=== PATIENT | female | born 1990 | race African-American/Black ===

== ENCOUNTER 2017-05-28 17:44 | Emergency (ER) | payer OTHER ==
[~2017-05-28] VITALS: Ht 149.9 cm; Wt 82.2 kg
[2017-05-28 17:55] VITALS: Ht 149.9 cm; Wt 82.2 kg
[2017-05-28] MEDS ORDERED: SULF1TAB31 PO (21:31)
[2017-05-28] MEDS ORDERED: CLOB60CR2 TOP (21:31)
[2017-05-28] MEDS ORDERED: CEPH-443 PO (21:31)
--- NOTE | 2017-05-28 21:43 | ERD ---
ER Documentation Chief Complaint Chief Complaint redness to nose since yesterday HPI 27-year-old female presents here to emergency department for complaints of redness in the tip of the nose that started yesterday, patient has history of rosacea, easily takes clobetasol cream for it. Patient is complaining of some pain, sharp pain 4/10 scale, as was upon touching the area, noted some purulent discharge coming out of it. Patient is any fever or chills. Patient denies any rash in other parts of the body. ROS All systems reviewed and are negative except as per history of present illness. Medications Home Meds Active Scripts Cephalexin* (Keflex*) 500 Mg Capsule, 500 MG PO QID for 10 Days, CAP Prov:MIKEL VILLAFUERTE NP 05/28/17 Sulfamethoxazole/Trimethoprim* (Bactrim Ds* Tablet) 1 Each Tablet, 1 TAB PO BID , #20 TAB Prov:MIKEL VILLAFUERTE NP 05/28/17 Clobetasol Propionate* (Clobetasol Propionate*) 60 Gm Cream.gm., 1 APPLIC TOP BID, #1 TUB Prov:MIKEL VILLAFUERTE NP 05/28/17 Allergies Allergies: Coded Allergies: Opioids - Morphine Analogues (Verified Allergy, Unknown, 05/28/17) PMhx/Soc Medical and Surgical Hx: pt denies Medical Hx, pt denies Surgical Hx Hx Alcohol Use: No Hx Substance Use: No Hx Tobacco Use: No Smoking Status: Never smoker FmHx Family History: No coronary disease, No diabetes, No other Physical Exam Vitals Vital Signs Date Time Temp Pulse Resp B/P Pulse Ox O2 Delivery O2 Flow Rate FiO2 05/28/17 21:45 98.5 103 16 139/82 98 Room Air 05/28/17 17:55 99.6 122 18 133/80 97 Physical Exam GENERAL: The patient is well developed and appropriate for usual state of health, in no apparent distress. HEENT: Atraumatic. Ears: Normal tympanic membrane, no erythema or bulging. No ear canal swelling. No ear discharge. Nose: normal nasal turbinates, no erythema or swelling. Normal nasal discharge. Throat: oropharynx clear. No tonsillar swelling or tonsillar exudates. No lymphadenopathy. Erythema in the tip of the nasal area, with tenderness on palpation, mild induration noted. CHEST: Clear to auscultation bilaterally. There are no rales, wheezes or rhonchi. HEART: Regular rate and rhythm. No murmurs, clicks, rubs or gallops. No S3 or S4. ABDOMEN: Soft, nontender and nondistended. Good bowel sounds. No rebound or guarding. No gross peritonitis. No gross organomegaly or masses. No Corley sign or McBurney point tenderness. BACK: No midline or flank tenderness. EXTREMITIES: Equal pulses bilaterally. There is no peripheral clubbing, cyanosis or edema. No focal swelling or erythema. Full range of motion. Grossly neurovascularly intact. NEURO: Alert and oriented. Cranial nerves 2-12 intact. Motor strength in all 4 extremities with 5/5 strength. Sensation grossly intact. Normal speech and gait. SKIN: There is no apparent rash or petechia. The skin is warm and dry. HEMATOLOGIC AND LYMPHATIC: There is no evidence of excessive bruising or lymphedema. No gross cervical, axillary, or inguinal lymphadenopathy. Procedures/MDM Medical Decision making: Patient symptoms was likely is consistent with rosacea , no symptoms of any sepsis at this time, patient appears well and is hemodynamically stable. No symptoms of any abscess. Prescription written for Keflex, Bactrim, clobetasol cream, is advised to see relationship specialist for further evaluation and management. Patient was advised to return to emergency department for any worsening symptoms. Disposition: Home. Stable. Departure Diagnosis: Primary Impression: Rosacea Condition: Stable Patient Instructions: MIKEL Finley NP May 28, 2017 21:43
[2017-05-28 21:45] VITALS: BP 139/82; PULSE 103; RESP 16; TEMP 98.5
== END 2017-05-28 22:12 | disposition home or self-care (01) ==
LOC: FTE 17:44
DX: L71.9 Rosacea, unspecified (principal)
CPT/HCPCS: 99284

== ENCOUNTER 2018-09-02 01:59 | Emergency (ER) | payer OTHER ==
[~2018-09-02] VITALS: Ht 149.9 cm; Wt 84.2 kg
[~2018-09-02 01:59] MED LIST: CEPH-443 PO; CLOB60CR2 TOP; SULF1TAB31 PO
[2018-09-02 02:11] VITALS: Ht 149.9 cm; Wt 84.2 kg
[2018-09-02] MEDS ORDERED: ALBUTEROL 0.083% (NEB) 2.5 MG/3 ML AMP HHN STA (04:31)
[2018-09-02] MEDS ORDERED: IPRATROPIUM (NEB) 0.5 MG/2.5 ML AMP HHN ONE (05:00)
[2018-09-02] MEDS ORDERED: predniSONE 20 MG TAB PO ONE (05:00)
[2018-09-02] MEDS ORDERED: BENZ-6 PO (05:25)
[2018-09-02] MEDS ORDERED: CETI10CA PO (05:25)
[2018-09-02] MEDS ORDERED: MONT10TA21 PO (05:25)
[2018-09-02] MEDS ORDERED: RANI150T35 PO (05:25)
[2018-09-02] MEDS ORDERED: FLUT9.9S NASAL (05:25)
[2018-09-02] MEDS ORDERED: ALBU18HF INHALATION (05:25)
[2018-09-02] MEDS ORDERED: BUDE6HFA INHALATION (05:25)
[2018-09-02] MEDS ORDERED: TIOT18CA INHALATION (05:25)
[2018-09-02] MEDS ORDERED: PRED20TA PO (05:26)
--- NOTE | 2018-09-02 05:28 | ERD ---
ER Documentation Chief Complaint Chief Complaint SOB,cough,congestion x 1-4 days hx asthma on inhaler HPI 28-year-old female presents with cough congestion and wheezing. She has a history of severe allergies. She is originally from [place] and has been okay for the last several months but was exposed to some dust recently which caused her allergies to get worse. She is requesting refills on her Singulair, Symbicort, Spiriva, plus additional medications. He has any fevers, recent significant URI. ROS All systems reviewed and are negative except as per history of present illness. Medications Home Meds Active Scripts Prednisone* (Prednisone*) 20 Mg Tab, 40 MG PO DAILY for 4 Days, TAB Prov:ALEX WINTERS MD 09/02/18 Cetirizine Hcl* (Zyrtec*) 10 Mg Capsule, 10 MG PO DAILY, #30 TAB.CHEW Prov:ALEX WINTERS MD 09/02/18 Budesonide-Formoterol Fumarate* (Symbicort*) 160-4.5 Hfa.aer.ad, 2 PUFF INHALATION BID, #1 EACH Prov:ALEX WINTERS MD 09/02/18 Montelukast Sodium* (Singulair*) 10 Mg Tablet, 10 MG PO QHS, #30 TAB Prov:ALEX WINTERS MD 09/02/18 Fluticasone Propionate (Flonase Allergy Relief) 9.9 Ml Isabella.susp, 1 SPRAY NASAL DAILY, #1 BOTTLE TO EACH NOSTRIL Prov:ALEX WINTERS MD 09/02/18 Albuterol Sulfate* (Ventolin HFA*) 18 Gm Hfa.aer.ad, 2 PUFF INHALATION Q4H, #1 INHALER Prov:ALEX WINTERS MD 09/02/18 Tiotropium [place]* (Spiriva*) 18 Mcg Cap.w.dev, 1 CAP INHALATION DAILY, #30 CAP Prov:ALEX WINTERS MD 09/02/18 Ranitidine Hcl* (Zantac*) 150 Mg Tablet, 150 MG PO BID PRN for EPIGASTRIC PAIN, #30 TAB Prov:ALEX WINTERS MD 09/02/18 Benzonatate* (Tessalon Perle*) 100 Mg Capsule, 100 MG PO Q8H PRN for COUGH, #20 CAP Prov:ALEX WINTERS MD 09/02/18 Cephalexin* (Keflex*) 500 Mg Capsule, 500 MG PO QID for 10 Days, CAP Prov:MIKEL VILLAFUERTE NP 05/28/17 Sulfamethoxazole/Trimethoprim* (Bactrim Ds* Tablet) 1 Each Tablet, 1 TAB PO BID, #20 TAB Prov:MIKEL VILLAFUERTE NP 05/28/17 Clobetasol Propionate* (Clobetasol Propionate*) 60 Gm Cream.gm., 1 APPLIC TOP BID, #1 TUB Prov:MIKEL VILLAFUERTE NP 05/28/17 Allergies Allergies: Coded Allergies: Latex, Natural Rubber (Verified Allergy, Unknown, 09/02/18) Opioids - Morphine Analogues (Verified Allergy, Unknown, 05/28/17) diphenhydramine (Verified Allergy, Unknown, 09/02/18) PMhx/Soc Medical and Surgical Hx: pt denies Surgical Hx Hx Respiratory Disorders: Yes (ASTHMA) Hx Alcohol Use: No Hx Substance Use: No Hx Tobacco Use: No Smoking Status: Never smoker Physical Exam Vitals Vital Signs Date Temp Pulse Resp B/P (MAP) Pulse Ox O2 O2 Flow FiO2 Time Delivery Rate 09/02/18 98.2 88 18 138/62 100 Room Air 05:41 (87) 09/02/18 99 22 99 21 04:46 09/02/18 97.1 95 18 142/76 98 02:11 (98) Physical Exam Const: No acute distress Head: Atraumatic Eyes: Normal Conjunctiva ENT: Normal External Ears, Nose and Mouth. Neck: Full range of motion. No meningismus. Resp: Clear to auscultation bilaterally. Mild wheeze and coarse cough. No ra les or retractions appreciated. Cardio: Regular rate and rhythm, no murmurs Abd: Soft, non tender, non distended. Normal bowel sounds Skin: No petechiae or rashes Back: No midline or flank tenderness Ext: No cyanosis, or edema Neur: Awake and alert Psych: Normal Mood and Affect Results 24 hrs Current Medications Medications Dose Sig/Mallory Start Time Status Last (Trade) Ordered Route PRN Stop Time Admin Dose Reason Admin Prednisone 60 mg ONCE ONCE 09/02/18 DC 09/02/18 (Prednisone) PO 05:00 04:39 09/02/18 05:01 Albuterol 5 mg ONCE STAT 09/02/18 DC 09/02/18 (Proventil HHN 04:31 04:45 0.083% (Neb)) 09/02/18 04:33 Ipratropium 1 mg ONCE ONCE 09/02/18 DC 09/02/18 [place] HHN 05:00 04:45 (Atrovent 09/02/18 05:01 0.02% (Neb)) Procedures/MDM Patient was given albuterol and Atrovent treatment and prednisone 60 mg by mouth for wheezing. Patient will be given refills on her medications. She has no signs of hypoxemia, rest or stress, abdominal pain, chest pain, additional concerning signs or symptoms. She is advised to follow-up with primary doctor and will be referred to local [facility] for refills and ongoing primary care. The patient was stable with no new complaints during the ER course. Clinically, there is no current evidence to suggest meningitis, sepsis, acute abdomen, pneumonia, stroke, acute coronary syndrome, pulmonary embolism, aortic dissection or any other emergent condition appearing to require further evaluation or hospitalization. Patient counseled regarding my diagnostic impression and care plan. Prior to discharge all questions answered. Pt agrees with treatment plan and understands strict return precautions. Pt is instructed to follow up with primary care provider within 24-48 hours. Precautionary instructions provided including instructions to return to the ER if not improving or for any worsening or changing symptoms or concerns. Departure Diagnosis: Primary Impression: Asthma Asthma severity: unspecified severity Asthma persistence: unspecified Asthma complication type: unspecified Qualified Codes: J45.909 - Unspecified asthma, uncomplicated Condition: Stable Patient Instructions: Asthma, Acute (Adult) Referrals: DOCTOR,NOT ON STAFF (PCP) [facility] YOU HAVE RECEIVED A MEDICAL SCREENING EXAM AND THE RESULTS INDICATE THAT YOU DO NOT HAVE A CONDITION THAT REQUIRES URGENT TREATMENT IN THE EMERGENCY DEPARTMENT. FURTHER EVALUATION AND TREATMENT OF YOUR CONDITION CAN WAIT UNTIL YOU ARE SEEN IN YOUR DOCTORS OFFICE WITHIN THE NEXT 1-2 DAYS. IT IS YOUR RESPONSIBILITY TO MAKE AN APPOINTMENT FOR FOLOW-UP CARE. IF YOU HAVE A PRIMARY DOCTOR --you should call your primary doctor and schedule an appointment IF YOU DO NOT HAVE A PRIMARY DOCTOR YOU CAN CALL OUR PHYSICIAN REFERRAL HOTLINE AT IF YOU CAN NOT AFFORD TO SEE A PHYSICIAN YOU CAN CHOSE FROM THE FOLLOWING [facility] CL[facility] [address] [facility] [address] [facility] [facility] [address] [facility] [address] [facility]. [facility] [phone] [id number] [facility] [facility] [address] Additional Instructions: Recheck for new or worsening symptoms with primary care doctor. ALEX WINTERS MD Sep 02, 2018 05:28
[2018-09-02 05:41] VITALS: BP 138/62; PULSE 88; RESP 18
== END 2018-09-02 05:42 | disposition home or self-care (01) ==
LOC: FTE 01:59
DX: J45.901 Unspecified asthma with (acute) exacerbation (principal); Z91.040 Latex allergy status
CPT/HCPCS: 94664; J7512; Z7502; Z7610